=== PATIENT | female | born 1970 ===

== ENCOUNTER 2016-10-29 12:17 | Emergency (ER) | payer MEDICARE, MEDICAID ==
[2016-10-29 12:58] VITALS: BMI 23.4
[2016-10-29 14:05] VITALS: BP 164/85; PULSE 97; RESP 18; TEMP 98; O2SAT 100
--- NOTE | 2016-10-29 14:11 | C.PDOC ---
History Of Present Illness 46-year-old female,Anemia, Arthritis, ID Diabetes (insulin pump), Hypertension, Hypercholesterolemia, Hypothyroidism, Chronic Kidney Disease, presents to the emergency department with complaints of high blood sugar. Since yesterday, patient was feeling that her blood sugar was high. Today, she noted it to continue to be high; Patient gave herself extra Insulin and did not eat. Patient states she was feeling "shaky" and son reports that patient had a near syncopal episode, resulting in her being brought to the ED for evaluation. She was given D50 in field by EMS. No trauma, nausea/vomiting, fevers, or any other associated symptoms. No other complaints at this time. Time Seen by Provider: 10/29/16 12:33 Chief Complaint (Nursing): Altered Mental Status History Per: Patient, EMS, Family History/Exam Limitations: None Current Symptoms Are (Timing): Better Past Medical History Reviewed: Historical Data, Nursing Documentation, Vital Signs Vital Signs: Last Vital Signs Temp 98.0 F 10/29/16 14:04 Pulse 97 H 10/29/16 14:04 Resp 18 10/29/16 14:04 BP 164/85 H 10/29/16 14:04 Pulse Ox 100 10/29/16 15:30 - Medical History PMH: Anemia, Arthritis, Diabetes (insulin pump), HTN, Hypercholesterolemia, Hypothyroidism, Chronic Kidney Disease - [facility] Procedures PACKED CELL TRANSFUSION (10/12/12) Family History: States: No Known Family Hx - Social History Hx Tobacco Use: No Hx Alcohol Use: No Hx Substance Use: No - Immunization History Hx Tetanus Toxoid Vaccination: Yes Hx Influenza Vaccination: Yes Hx Pneumococcal Vaccination: No Review Of Systems Except As Marked, All Systems Reviewed And Found Negative. Constitutional: Negative for: Fever, Chills Cardiovascular: Negative for: Chest Pain, Palpitations Respiratory: Negative for: Shortness of Breath Gastrointestinal: Negative for: Nausea, Vomiting Neurological: Negative for: Weakness, Numbness Physical Exam - Physical Exam Appears: Well, Non-toxic, No Acute Distress Skin: Warm, Dry, No Rash Head: Atraumatic, Normacephalic Eye(s): bilateral: Normal Inspection, PERRL, EOMI Nose: Normal Oral Mucosa: Moist Lips: Normal Appearing Neck: Normal ROM Chest: Symmetrical Cardiovascular: Rhythm Regular, No Murmur Respiratory: Normal Breath Sounds, No Accessory Muscle Use Gastrointestinal/Abdominal: Other (insulin pump ) Extremity: Normal ROM Neurological/Psych: Oriented x3, Normal Speech, Normal Cranial Nerves, Normal Motor, Normal Sensation Gait: Steady ED Course And Treatment O2 Sat by Pulse Oximetry: 100 (on RA) Pulse Ox Interpretation: Normal Progress Note: The patient was instructed to shut off the pump for now. Meal given. On re-exam, the patient reports improvement. A&O x3, ambulatory in the ED with steady gait, no focal deficits. Abdomen is soft, non-tender and tolerating PO well. Lungs are CTA, and heart is RRR. Follow up with the medical doctor within 1-2 days. Return if worsened. Disposition - Disposition Referrals: Sonia Briseno MD [Non-Staff] - Disposition: HOME/ ROUTINE Disposition Time: 14:21 Condition: GOOD Additional Instructions: Do not take your insulin until later tonight. Follow up with the medical doctor within 1-2 days. Return if worsened. Instructions: Diabetic Hypoglycemia (ED) - Clinical Impression Clinical Impression: Hypoglycemia - PA / STRATE[employer]IC [employer]ER / Resident Statement MD/ has reviewed & agrees with the documentation as recorded. - Scribe Statement The provider has reviewed the documentation as recorded by the Scribe (Juancarlos Lang) All medical record entries made by the Scribe were at my direction and personally dictated by me. I have reviewed the chart and agree that the record accurately reflects my personal performance of the history, physical exam, medical decision making, and the department course for this patient. I have also personally directed, reviewed, and agree with the discharge instructions and disposition.
--- NOTE | 2016-11-04 14:28 | CARD ---
APPROVED REPORT EKG Measurement Heart [id number] <Conclusion> Sinus tachycardia Otherwise normal ECG
== END 2016-10-29 14:30 | disposition home or self-care (01) ==
LOC: C.ER 12:17
DX: E11.649 Type 2 diabetes mellitus with hypoglycemia without coma (principal); Z79.4 Long term (current) use of insulin